=== PATIENT | female | born 1980 | race American Indian/Alaskan Native ===

== ENCOUNTER 2017-01-13 01:02 | Emergency (ER) | payer MEDICAID ==
[2017-01-13 03:03] LABS: Basophils % (Auto) 0.7 % (0.0-1.8); Eosinophils % (Auto) 3.5 % (0.0-4.3); Hemoglobin 11.3 gm/dl (10.1-14.3); Mean Corpuscular HGB Conc 33 % (30-34); Mean Corpuscular Hemoglobin 28 pg (28-32); Mean Corpuscular Volume 84 fl (79-97); Platelet Count 227 K/mm3 (140-440); Red Blood Count 4.06 M/mm3 (3.65-5.03); Red Cell Distribution Width 17.2 % (13.2-15.2); White Blood Count 10.2 K/mm3 (4.5-11.0)
[2017-01-13] MEDS ORDERED: ZOFRAN ODT ONE (04:23)
--- NOTE | 2017-01-13 04:34 | Ultrasound Report ---
FINAL REPORT PROCEDURE: US OB \T\lt; = 14 WEEKS FETUS TECHNIQUE: Real-time transabdominal sonography of the uterus, placenta, amniotic fluid, adnexa, and fetus was performed with image documentation. Measurements were obtained to determine age/size. M-mode Doppler was used to document heartbeat. CPT 90990 HISTORY: vaginal bleeding COMPARISON: No prior studies are available for comparison. FINDINGS: Within the uterus there is a gestational sac. A pole of approximately 4 millimeters would correspond to a gestational age of less than 6 weeks. No heart activity is seen. There are 2 small cysts identified on the right ovary. The left ovary has a normal size and echogenicity. The findings may indicate early or failure in this patient. The pay patient did have bleeding during the entire examination. IMPRESSION: There is a gestational sac within the uterus. The gestational sac size of 4 millimeters corresponds to gestational age of less than 6 weeks. No heart activity is was identified on this study. The findings may indicate early or failure. Followup studies may include serial beta HCG levels and repeat ultrasound.
[2017-01-13] MEDS ORDERED: NACL 0.9% 1000 ML 1,000 ML IV ONE (06:47)
[2017-01-13] MEDS ORDERED: PHENERGAN PO ONE (06:47)
[2017-01-13] MEDS ORDERED: MORPHINE IV ONE (06:47)
--- NOTE | 2017-01-13 06:53 | Emergency Department Report ---
ED Female HPI - General Chief complaint: Vaginal Bleeding Stated complaint: POSS MISSCARRIAGE Time Seen by Provider: 01/13/17 06:37 Source: patient Mode of arrival: Ambulatory Limitations: No Limitations - History of Present Illness Initial comments: 36-year-old female currently presents to the hospital complaining of vaginal bleeding since 11:30 PM last night. Patient denies sexual intercourse or trauma. Patient has had an ultrasound during this and reports IUP with heart tones on previous ultrasound. Patient is soaking through several diapers. She reports 8/0 cramping suprapubic abdominal pain that is constant. No improvement with Tylenol prior to arrival. Her 10th , she has 8 children, and history of one miscarriage prior. SUBMARINE ADVISORY TEAM WATCH OFFICER: Dr. Uriah Amador - Related Data Home Medications Medication Instructions Recorded Confirmed Last Taken Vitamin 1 tab PO DAILY 05/24/15 10/13/15 05/24/15 HYDROcodone/APAP 5-325 [[place] 1 each PO Q6HR PRN 10/13/15 10/13/15 10/11/15 5/325] Labetalol [Normodyne TAB] 100 mg PO QDAY 10/13/15 10/13/15 2 Weeks Ago Lansoprazole [Prevacid] 30 mg PO QDAY 10/13/15 10/13/15 Unknown Promethazine [Phenergan TAB] 25 mg PO Q6HR PRN 10/13/15 10/13/15 10/12/15 Previous Rx's Medication Instructions Recorded Last Taken Type Labetalol [Normodyne TAB] 200 mg PO BID #60 tablet 10/15/15 Unknown Rx Labetalol [Normodyne TAB] 300 mg PO BID #90 tablet 10/24/15 Unknown Rx amLODIPine [Norvasc] 10 mg PO DAILY #14 tab 10/24/15 Unknown Rx Ibuprofen [Motrin] 800 mg PO Q8HR PRN #30 tablet 01/13/17 Unknown Rx oxyCODONE /ACETAMINOPHEN [Percocet 1 tab PO Q6HR PRN #20 tablet 01/13/17 Unknown Rx 5/325] Allergies Allergy/AdvReac Type Severity Reaction Status Date / Time No Known Allergies Allergy Verified 05/24/15 20:05 ED Review of Systems ROS: Stated complaint: POSS MISSCARRIAGE Other details as noted in HPI Comment: All other systems reviewed and negative Other: Constitutional: No fevers chills Eyes: No eye pain visual changes ENT: No ear pain or throat pain Neck: Denies pain Respiratory: Denies cough wheezing shortness of breath Cardiovascular: Denies chest pain, palpitations, syncope GI: as per hpi : Denies dysuria Musculoskeletal: Denies back pain Skin: Denies rash, lesions, erythema Neurologic: Denies headache, numbness, weakness Psychiatric: Denies suicidal ideation, hallucinations ED Past Medical Hx - Past Medical History Previous Medical History?: Yes Hx Hypertension: No Hx Congestive Heart Failure: No Hx Diabetes: No Hx Deep Vein Thrombosis: No Hx Renal Disease: Yes (hx of kidney stones) Hx Sickle Cell Disease: No Hx Seizures: No Hx Asthma: No Hx COPD: No Hx HIV: No Additional medical history: MVP, hemmorage - Surgical History Past Surgical History?: No Additional Surgical History: denies - Social History Smoking Status: Never Smoker Substance Use Type: None - Medications Home Medications: Home Medications Medication Instructions Recorded Confirmed Last Taken Type Vitamin 1 tab PO DAILY 05/24/15 10/13/15 05/24/15 History HYDROcodone/APAP 5-325 [[place] 1 each PO Q6HR PRN 10/13/15 10/13/15 10/11/15 History 5/325] Labetalol [Normodyne TAB] 100 mg PO QDAY 10/13/15 10/13/15 2 Weeks Ago History Lansoprazole [Prevacid] 30 mg PO QDAY 10/13/15 10/13/15 Unknown History Promethazine [Phenergan TAB] 25 mg PO Q6HR PRN 10/13/15 10/13/15 10/12/15 History Labetalol [Normodyne TAB] 200 mg PO BID #60 tablet 10/15/15 Unknown Rx Labetalol [Normodyne TAB] 300 mg PO BID #90 tablet 10/24/15 Unknown Rx amLODIPine [Norvasc] 10 mg PO DAILY #14 tab 10/24/15 Unknown Rx Ibuprofen [Motrin] 800 mg PO Q8HR PRN #30 tablet 01/13/17 Unknown Rx oxyCODONE /ACETAMINOPHEN [Percocet 1 tab PO Q6HR PRN #20 tablet 01/13/17 Unknown Rx 5/325] ED Physical Exam - General Limitations: No Limitations - Other Other exam information: General: No limitations, patient is alert in no acute distress Head exam: Atraumatic, normocephalic Eyes exam: Normal appearance, pupils equal reactive to light, extraocular movements intact ENT: Moist mucous membrane, normal oropharynx Neck exam: Normal inspection, full range of motion, no meningismus nontender Respiratory exam: Clear to auscultation bilateral, no wheezes, rales, crackles Cardiovascular: Normal rate and rhythm, normal heart sounds Abdomen: Soft, nondistended, superpubic tenderness, with normal bowel sounds, no rebound, or guarding : most of clots moved from vault. Clots remain, minimum active bleeding at this time Extremity: Full range of motion normal inspection no deformity Back: Normal Inspection, full range of motion, no tenderness Neurologic: Alert, oriented x3, cranial nerves intact, no motor or sensory deficit Psychiatric: normal affect, normal mood Skin: Warm, dry, intact ED Course Vital Signs 01/13/17 01/13/17 01/13/17 01:26 01:58 03:15 Temperature 97.4 F L 97.6 F Pulse Rate 100 H 100 H 66 Respiratory 20 18 18 Rate Blood Pressure 128/97 Blood Pressure 128/97 124/68 [Right] O2 Sat by Pulse 100 100 99 Oximetry 01/13/17 01/13/17 01/13/17 05:20 07:05 07:35 Temperature Pulse Rate 70 Respiratory 18 18 18 Rate Blood Pressure Blood Pressure 138/88 [Right] O2 Sat by Pulse 98 Oximetry 01/13/17 01/13/17 01/13/17 07:42 08:12 11:01 Temperature Pulse Rate Respiratory 18 18 18 Rate Blood Pressure Blood Pressure [Right] O2 Sat by Pulse Oximetry 01/13/17 11:15 Temperature Pulse Rate Respiratory 18 Rate Blood Pressure Blood Pressure [Right] O2 Sat by Pulse Oximetry - Consultations Consultation #1: 01/13/17 06:[address] Amador, I will call back after pelvic exam 01/13/17 07:40 Dr. Amador recommends Methergine IM and outpatient follow-up ED Medical Decision Making - Lab Data Result diagrams: 01/13/17 02:38 Lab Results 01/13/17 01/13/17 01/13/17 Range/Units 02:38 02:38 02:38 WBC 10.2 (4.5-11.0) K/mm3 RBC 4.06 (3.65-5.03) M/mm3 Hgb 11.3 (10.1-14.3) gm/dl Hct 34.0 (30.3-42.9) % MCV 84 (79-97) fl MCH 28 (28-32) pg MCHC 33 (30-34) % RDW 17.2 H (13.2-15.2) % Plt Count 227 (140-440) K/mm3 Lymph % (Auto) 37.3 H (13.4-35.0) % [place] % (Auto) 6.2 (0.0-7.3) % Eos % (Auto) 3.5 (0.0-4.3) % Baso % (Auto) 0.7 (0.0-1.8) % Lymph # 3.8 (1.2-5.4) K/mm3 Treasure # 0.6 (0.0-0.8) K/mm3 Eos # 0.4 (0.0-0.4) K/mm3 Baso # 0.1 (0.0-0.1) K/mm3 Seg Neutrophils % 52.3 (40.0-70.0) % Seg Neutrophils # 5.4 (1.8-7.7) K/mm3 HCG, Quant 5554 H (0-4) mIU/mL Blood Type B POSITIVE Antibody Screen TNR COLBY Antibody Screen Negative - Radiology Data Radiology results: report reviewed ultrasound: The gestational sac within the uterus. 4 mm corresponds to less than 6 weeks. No heart activity. Findings may indicate early or failure - Medical Decision Making Plan to discharge patient home with SUBMARINE ADVISORY TEAM WATCH OFFICER follow-up tomorrow. Patient was observed for several hours after receiving Methergine and pain medication and bleeding has improved. Vital signs stable. - Differential Diagnosis miscarriage, threatened , anemia Critical Care Time: No Critical care attestation.: If time is entered above; I have spent that time in minutes in the direct care of this critically ill patient, excluding procedure time. ED Disposition Clinical Impression: Miscarriage Disposition: DC-01 TO HOME OR SELFCARE Is pt being admited?: No Does the pt Need Aspirin: No Condition: Stable Instructions: Spontaneous Miscarriage (ED) Additional Instructions: Follow-up with Dr. Amador your SUBMARINE ADVISORY TEAM WATCH OFFICER doctor tomorrow. Take medication as needed for pain. Return if symptoms worsen. Prescriptions: Ibuprofen [Motrin] 800 mg PO Q8HR PRN #30 tablet PRN Reason: Pain oxyCODONE /ACETAMINOPHEN [Percocet 5/325] 1 tab PO Q6HR PRN #20 tablet PRN Reason: Pain Referrals: IAN AMADOR MD [Staff Physician] - 3-5 Days Forms: Work/School Release Form(ED) Time of Disposition: 11:57
[2017-01-13] MEDS ORDERED: DILAUDID ONE (07:30)
[2017-01-13] MEDS ORDERED: DILAUDID IM ONE (07:36)
[2017-01-13] MEDS ORDERED: DILAUDID IV ONE ×2 (07:36→10:00)
[2017-01-13] MEDS ORDERED: METHERGINE IM ONE (07:39)
[2017-01-13] MEDS ORDERED: TORADOL IV ONE (09:59)
[2017-01-13 14:20] VITALS: BP 111/70
== END 2017-01-13 13:00 | disposition home or self-care (01) ==
LOC: ED 01:02
DX: O03.9 Complete or unspecified spontaneous abortion without complication (principal); Z3A.01 Less than 8 weeks gestation of pregnancy
CPT/HCPCS: 36415; 76801; 84702; 85025; 86850; 86900; 86901; 96361; 96372; 96374; 96375; 99284; J1170; J1885; J2210; J2270; J7030; Q0162; Q0169